=== PATIENT | male | born 1955 | race Caucasian/White ===

== ENCOUNTER → 2016-03-25 | Outpatient (CLI) | payer OTHER ==
[~2016-03-25] MED LIST: VALP250C PO; VALP250C3 PO
[2016-03-25 09:38] LABS: HEMATOCRIT 45.1 % (42-52); MEAN CELL VOLUME 90.7 fL (80-100); MEAN CORPUSCULAR HEMOGLOBIN 31.6 pg (25-34); MEAN CORPUSCULAR HGB CONC 34.8 g/dl (32-36); MEAN PLATELET VOLUME 10.8 fL (7.4-10.4); PLATELET COUNT 159 K/uL (130-400); RED BLOOD COUNT 4.97 M/uL (4.7-6.1); WHITE BLOOD COUNT 6.13 K/uL (4.8-10.8)
[2016-03-25 09:55] LABS: ALT/SGPT 29 U/L (12-78); AMYLASE 35 U/L (25-115); AST/SGOT 19 U/L (15-37)
[2016-03-25 10:13] LABS: BASO % 0.5 %; BASO ABS # 0.03 K/uL (0-0.2); COMPLETE YES; EOS % 2.9 %; IG% 0.2 %; LYMPH % 53.2 %; LYMPH ABS # 3.26 K/uL (1.2-3.4); MONO % 9.3 %; NEUT % 33.9 %
== END | disposition home or self-care (01) ==
LOC: C.LAB 08:26
DX: E78.5 Hyperlipidemia, unspecified (principal); F39 Unspecified mood [affective] disorder

== ENCOUNTER → 2016-04-01 | Outpatient (CLI) | payer OTHER ==
--- NOTE | 2016-04-01 15:32 | DIAGNOSTIC IMAGING REPORT ---
CHEST 2 VIEWS ROUTINE CLINICAL HISTORY: Chest and back pain. Scapular pain. Diabetes. COMPARISON STUDY: 10/11/2008 FINDINGS: The cardiac and mediastinal contours are normal. There is no evidence of focal pulmonary consolidation. There is no evidence of failure. No pleural effusions are visualized.[ IMPRESSION: No active disease in the chest. Electronically signed by: Igor Elizalde M.D. 04/01/2016 3:30 PM Dictated Date/Time: 04/01/2016 3:30 PM
[2016-04-02 07:06] LABS: ESTIMATED AVERAGE GLUCOSE 154 mg/dl; HA1C FLAG Normal (Normal)
== END | disposition home or self-care (01) ==
LOC: C.RAD 14:53
DX: M54.9 Dorsalgia, unspecified (principal); E11.9 Type 2 diabetes mellitus without complications

== ENCOUNTER 2016-05-14 19:58 | Emergency (ER) | payer OTHER ==
[~2016-05-14] VITALS: Ht 182.9 cm; Wt 87.9 kg
[2016-05-14 20:10] VITALS: Ht 182.9 cm; Wt 87.9 kg
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
[2016-05-14 21:35] VITALS: BP 125/85; PULSE 72; TEMP 36.7; O2SAT 97
[2016-11-15] MEDS ORDERED: PANT40TA PO (14:03)
== END 2016-05-14 21:40 | disposition home or self-care (01) ==
LOC: C.EDB 19:59 → C.EDC 21:40
DX: I86.8 Varicose veins of other specified sites (principal); E11.9 Type 2 diabetes mellitus without complications; R56.9 Unspecified convulsions; Z79.899 Other long term (current) drug therapy; Z83.3 Family history of diabetes mellitus; Z82.49 Family history of ischemic heart disease and other diseases of the circulatory system; Z80.9 Family history of malignant neoplasm, unspecified

== ENCOUNTER → 2016-05-23 | Outpatient (CLI) | payer OTHER ==
[~2016-05-23] MED LIST changes: +PANT40TA PO
[2016-05-23 12:28] LABS: BASO ABS # 0.07 K/uL (0-0.2); COMPLETE YES; EOS % 2.8 %; HEMATOCRIT 49.9 % (42-52); IG% 0.3 %; LYMPH % 44.7 %; LYMPH ABS # 3.22 K/uL (1.2-3.4); MEAN CORPUSCULAR HEMOGLOBIN 31.5 pg (25-34); MEAN CORPUSCULAR HGB CONC 33.5 g/dl (32-36); MEAN PLATELET VOLUME 10.8 fL (7.4-10.4); MONO % 9.7 %; NEUT % 41.5 %; PLATELET COUNT 188 K/uL (130-400); RED BLOOD COUNT 5.31 M/uL (4.7-6.1); WHITE BLOOD COUNT 7.21 K/uL (4.8-10.8)
[2016-05-23 13:23] LABS: ESTIMATED AVERAGE GLUCOSE 160 mg/dl; HA1C FLAG Normal (Normal)
[2016-05-23 14:46] LABS: ALT/SGPT 34 U/L (12-78); AMYLASE 36 U/L (25-115); AST/SGOT 19 U/L (15-37); BLOOD UREA NITROGEN 15 mg/dl (7-18); BUN/CREATININE RATIO 11.2 (10-20); CARBON DIOXIDE 28 mmol/L (21-32); CHLORIDE 106 mmol/L (98-107); GLUCOSE 153 mg/dl (70-99); POTASSIUM 4.9 mmol/L (3.5-5.1); SODIUM 142 mmol/L (136-145)
[2016-05-23 14:51] LABS: PROSTATE SPECIFIC ANTIGEN 0.694 ng/ml (0.000-4.000)
== END | disposition home or self-care (01) ==
LOC: C.LABBFT 08:16
DX: G40.909 Epilepsy, unspecified, not intractable, without status epilepticus (principal); E11.9 Type 2 diabetes mellitus without complications

== ENCOUNTER → 2016-11-07 | Outpatient (CLI) | payer OTHER ==
[~2016-11-07] MED LIST changes: -PANT40TA PO
[2016-11-07 09:46] LABS: BASO % 0.6 %; BASO ABS # 0.04 K/uL (0-0.2); COMPLETE YES; EOS % 2.9 %; HEMATOCRIT 47.7 % (42-52); IG% 0.1 %; LYMPH % 45.8 %; LYMPH ABS # 3.31 K/uL (1.2-3.4); MEAN CELL VOLUME 91.2 fL (80-100); MEAN CORPUSCULAR HEMOGLOBIN 32.3 pg (25-34); MEAN CORPUSCULAR HGB CONC 35.4 g/dl (32-36); MEAN PLATELET VOLUME 11.1 fL (7.4-10.4); MONO % 9.4 %; NEUT % 41.2 %; PLATELET COUNT 161 K/uL (130-400); RED BLOOD COUNT 5.23 M/uL (4.7-6.1); WHITE BLOOD COUNT 7.22 K/uL (4.8-10.8)
[2016-11-07 10:10] LABS: ALT/SGPT 25 U/L (12-78); AMYLASE 32 U/L (25-115); AST/SGOT 16 U/L (15-37); BLOOD UREA NITROGEN 17 mg/dl (7-18); BUN/CREATININE RATIO 14.1 (10-20); CALCIUM 8.8 mg/dl (8.5-10.1); CARBON DIOXIDE 29 mmol/L (21-32); CHLORIDE 105 mmol/L (98-107); GLUCOSE 143 mg/dl (70-99); POTASSIUM 4.4 mmol/L (3.5-5.1); SODIUM 140 mmol/L (136-145)
[2016-11-07 10:13] LABS: CHOLESTEROL 211 mg/dl (0-200); CHOLESTEROL/HDL RATIO 4.4; HDL CHOLESTEROL 48 mg/dl; LDL CHOLESTEROL CALCULATED 140 mg/dl; TRIGLYCERIDES 114 mg/dl (0-150); VERY LOW DENSITY LIPOPROT CALC 23 mg/dl
== END | disposition home or self-care (01) ==
LOC: C.LAB 07:28
DX: E11.9 Type 2 diabetes mellitus without complications (principal); F39 Unspecified mood [affective] disorder; E78.5 Hyperlipidemia, unspecified

== ENCOUNTER → 2016-11-23 | Day surgery (SDC) | payer OTHER ==
[2016-11-15 13:59] VITALS: BMI 27.0
[~2016-11-23] VITALS: Ht 182.9 cm; Wt 90.9 kg
[~2016-11-23] MED LIST changes: +FENTANYL CITRATE INJ 50 MCG/1 ML 2 ML VIAL ONE; +LIDOCAINE HCL 2% 2 ML VIAL (20MG/ML) ONE; +MIDAZOLAM HCL 1 MG/ML 2ML VIAL ONE; +ONDANSETRON INJ 2 MG/ML 2 ML VIAL ONE; +PANT40TA PO; +PROPOFOL IV EMULSION 10 MG/ML 20 ML VIAL IV ONE
[2016-11-23 08:16] VITALS: Ht 182.9 cm; Wt 90.9 kg
--- NOTE | 2016-11-23 08:36 | Endo History and Physical ---
History & Physical Date of Service: Nov 23, 2016. Chief Complaint: HISTORY OF POLYPS Referring Physician: DR. LATHAM History of Present Illness 61 yo CM who presents for colonoscopy secondary to history of colon polyps Past Surgical History Hx Cardiac Surgery: No Hx Internal Defibrillator: No Hx Pacemaker: No Hx Abdominal Surgery: No Hx of Implantable Prosthesis: No Hx Post-Op Nausea and Vomiting: No Hx Cancer Surgery: No Hx Thoracic Surgery: No Hx Orthopedic: No Hx Urinary Tract Surgery: No Family History None Social History Smoking Status: Former Smoker Hx Substance Use: No Hx Alcohol Use: No Allergies Coded Allergies: Penicillins (Verified Allergy, Severe, THROAT SWELLING, 11/23/16) Sulfa Antibiotics (Verified Allergy, Severe, THROAT SWELLING, 11/23/16) Quinolones (Unverified Allergy, Mild, PT DOESN'T REMEMBER REACTION, ) Current Medications Reported Home Medications Medications Dose Route/Sig Max Daily Dose Days Date Category Protonix (Pantoprazole Sodium) 40 Mg Tab 40 Mg PO QAM 11/15/16 Reported Valproic Acid 250 Mg Cap 250 Mg PO HS 06/19/13 Reported Depakene (Valproic Acid) 250 Mg Cap 500 Mg PO AM/3PM 06/19/13 Reported Vital Signs Weight (Kilograms): 90.91 Height (Feet): 6 Height (Inches): 0 Date Time Temp Pulse Resp B/P (MAP) Pulse Ox O2 Delivery O2 Flow Rate FiO2 11/23/16 08:22 36.1 70 18 144/67 (92) 98 Room Air Physical Exam General Appearance: WD/WN, no apparent distress Respiratory/Chest: Auscultation: breath sounds normal Cardiovascular: Heart Auscultation: RRR Abdomen: Bowel Sounds: normal Inspection & Palpation: soft, non-distended, no tenderness, guarding & rebound Assessment and Plan Assessment: 61 yo CM who presents for colonoscopy secondary to history of colon polyps Plan: Proceed with colonoscopy.
--- NOTE | 2016-11-23 09:11 | GI REPORT ---
Procedure Date: 11/23/2016 8:28 AM Procedure: Colonoscopy Indications: High risk colon cancer surveillance: Personal history of colonic polyps Medicines: Monitored Anesthesia Care Complications: No immediate complications. Estimated Blood Loss: Estimated blood loss: none. Procedure: Pre-Anesthesia Assessment: - Prior to the procedure, a History and Physical was performed, and patient medications and allergies were reviewed. The patient's tolerance of previous anesthesia was also reviewed. The risks and benefits of the procedure and the sedation options and risks were discussed with the patient. All questions were answered, and informed consent was obtained. Prior Anticoagulants: The patient has taken no previous anticoagulant or antiplatelet agents. ASA Grade Assessment: II - A patient with mild systemic disease. After reviewing the risks and benefits, the patient was deemed in satisfactory condition to undergo the procedure. After I obtained informed consent, the scope was passed under direct vision. Throughout the procedure, the patient's blood pressure, pulse, and oxygen saturations were monitored continuously. The scope was introduced through the anus and advanced to the terminal ileum. The colonoscopy was performed without difficulty. The patient tolerated the procedure well. The quality of the bowel preparation was good. The terminal ileum, ileocecal valve, appendiceal orifice, and rectum were photographed. Findings: A 5 mm polyp was found at the hepatic flexure. The polyp was sessile. The polyp was removed with a hot snare. Resection and retrieval were complete. Non-bleeding internal hemorrhoids were found during retroflexion. The hemorrhoids were small. Impression: - One 5 mm polyp at the hepatic flexure, removed with a hot snare. Resected and retrieved. - Non-bleeding internal hemorrhoids. Recommendation: - Resume previous diet. - Continue present medications. - Repeat colonoscopy for surveillance based on pathology results. - Return to primary care physician as previously scheduled. Rick Velasquez DO 11/23/2016 9:11:11 AM This report has been signed electronically. Note Initiated On: 11/23/2016 8:28 AM I attest to the content of the Intraoperative Record and orders documented therein, exceptions below
[2016-11-23 09:34] VITALS: BP 129/90; PULSE 59; O2SAT 99
--- NOTE | 2016-11-23 09:36 | Anesthesiology Progress Note ---
Anesthesia Post Op Note Date & Time Nov 23, 2016 at 09:36 Vital Signs Pain Intensity: 0 Vital Signs Past 12 Hours Date Time Temp Pulse Resp B/P (MAP) Pulse Ox O2 Delivery O2 Flow Rate FiO2 11/23/16 09:19 59 16 115/67 (83) 99 Room Air 11/23/16 09:04 59 16 99/63 (75) 95 Room Air 11/23/16 08:22 36.1 70 18 144/67 (92) 98 Room Air Notes Mental Status: alert / awake / arousable, participated in evaluation Pt Amnestic to Procedure: Yes Nausea / Vomiting: adequately controlled Pain: adequately controlled Airway Patency, RR, SpO2: stable & adequate BP & HR: stable & adequate Hydration State: stable & adequate Anesthetic Complications: no major complications apparent
--- NOTE | 2016-11-23 09:36 | Discharge Instructions ---
Endoscopy Patient Instructions Date / Procedure(s) Performed Nov 23, 2016. Colonoscopy Allergy Information Coded Allergies: Penicillins (Verified Allergy, Severe, THROAT SWELLING, 11/23/16) Sulfa Antibiotics (Verified Allergy, Severe, THROAT SWELLING, 11/23/16) Quinolones (Unverified Allergy, Mild, PT DOESN'T REMEMBER REACTION, ) Discharge Date / Findings Nov 23, 2016. Colon polyp Internal hemorrhoids Medication Instructions OK to resume all medications today as prescribed Reported Home Medications Medications Dose Route/Sig Max Daily Dose Days Date Category Protonix (Pantoprazole Sodium) 40 Mg Tab 40 Mg PO QAM 11/15/16 Reported Valproic Acid 250 Mg Cap 250 Mg PO HS 06/19/13 Reported Depakene (Valproic Acid) 250 Mg Cap 500 Mg PO AM/3PM 06/19/13 Reported Provider Instructions Activity Restrictions - No exercising or heavy lifting for 24 hours. - Do not drink alcohol the day of the procedure. - Do not drive a car or operate machinery until the day after the procedure. - Do not make any important decisions or sign important papers in 24 hours after the procedure. Following Day: - Return to full activity which may include returning to work/school. Diet Start your diet with liquids and light foods (jello, soup, juice, toast). Then eat your usual diet if not nauseated. Treatment For Common After Affects For mild abdominal pain, bloating, or excessive gas: - Rest - Eat lightly - Lie on right side Follow-Up Information Follow-up with DR. LATHAM as scheduled Anesthesia Information What You Should Know You have had a procedure that required some medicine to reduce anxiety and discomfort. This treatment is called moderate sedation. After receiving the treatment, you may be sleepy, but you will be able to breathe on your own. The effects of the treatment may last for several hours. Follow these instructions along with Activity/Diet recommendations noted above: * Do NOT do anything where dizziness or clumsiness would be dangerous. * Rest quietly at home today, then you can be up and about tomorrow. * Have a responsible person stay with you the rest of today. * You may have had an I.V. today. If so, you may take the dressing off later today. Recommendations Call your doctor if: * Trouble breathing * Continuous vomiting for more than 24 hours * Temperature above 101 degrees * Severe abdominal pain or bloating * Pain not relieved by pain medicine ordered * There is increased drainage or redness from any incision * A large amount of rectal bleeding greater than 2-3 tablespoons. (If you had a polyp/s removed or have hemorrhoids, a small amount of blood - from the rectum is to be expected.) * You have any unanswered questions or concerns. IN THE EVENT OF A SERIOUS EMERGENCY, GO TO THE NEAREST EMERGENCY ROOM Your discharge instructions were prepared by provider Rick Velasquez. Patient Instructions Signature Page Asher Kruger Patient (or Guardian) Signature/Date: I have read and understand the instructions given to me by my caregivers. Caregiver/RN/Doctor Signature/Date: The above-named patient and/or guardian has received patient instructions on this date. + Original Patient Signature Page (only) stays with chart. Please make copy for patient.
== END | disposition home or self-care (01) ==
LOC: C.GI 07:44
PROVIDERS: ATTEND Internal Medicine
DX: Z12.11 Encounter for screening for malignant neoplasm of colon (principal); D12.3 Benign neoplasm of transverse colon; K64.8 Other hemorrhoids; Z86.010 Personal history of colon polyps; Z87.891 Personal history of nicotine dependence; Z79.899 Other long term (current) drug therapy

== ENCOUNTER → 2017-03-29 | Outpatient (CLI) | payer OTHER ==
[~2017-03-29] MED LIST changes: -FENTANYL CITRATE INJ 50 MCG/1 ML 2 ML VIAL ONE; -LIDOCAINE HCL 2% 2 ML VIAL (20MG/ML) ONE; -MIDAZOLAM HCL 1 MG/ML 2ML VIAL ONE; -ONDANSETRON INJ 2 MG/ML 2 ML VIAL ONE; -PROPOFOL IV EMULSION 10 MG/ML 20 ML VIAL IV ONE
[2017-03-29 09:33] LABS: BASO % 0.5 %; BASO ABS # 0.03 K/uL (0-0.2); EOS % 2.1 %; EOS ABS # 0.13 K/uL (0-0.5); HEMATOCRIT 43.7 % (42-52); HEMOGLOBIN 15.2 g/dL (14.0-18.0); LYMPH % 47.1 %; LYMPH ABS # 2.97 K/uL (1.2-3.4); MEAN CELL VOLUME 88.6 fL (80-100); MEAN CORPUSCULAR HEMOGLOBIN 30.8 pg (25-34); MEAN CORPUSCULAR HGB CONC 34.8 g/dl (32-36); MEAN PLATELET VOLUME 10.2 fL (7.4-10.4); MONO % 10.6 %; MONO ABS # 0.67 K/uL (0.11-0.59); NEUT % 38.1 %; PLATELET COUNT 246 K/uL (130-400); RED CELL DISTRIBUTION WIDTH CV 12.7 % (11.5-14.5); RED CELL DISTRIBUTION WIDTH SD 40.6 fL (36.4-46.3)
[2017-03-29 09:52] LABS: ALT/SGPT 29 U/L (12-78); AST/SGOT 19 U/L (15-37); BLOOD UREA NITROGEN 23 mg/dl (7-18); CALCIUM 8.7 mg/dl (8.5-10.1); CARBON DIOXIDE 26 mmol/L (21-32); CREATININE 1.28 mg/dl (0.60-1.40); GLUCOSE 154 mg/dl (70-99); POTASSIUM 4.3 mmol/L (3.5-5.1); SODIUM 140 mmol/L (136-145)
[2017-03-29 10:33] LABS: HEMOGLOBIN A1C 7.7 % (4.5-5.6)
== END | disposition home or self-care (01) ==
LOC: C.LAB 07:15
DX: Z51.81 Encounter for therapeutic drug level monitoring (principal); Z79.899 Other long term (current) drug therapy; E11.9 Type 2 diabetes mellitus without complications